=== PATIENT | female | born 1985 | race Caucasian/White ===

== ENCOUNTER 2016-11-04 17:39 | Emergency (ER) | payer OTHER ==
[~2016-11-04] VITALS: Ht 165.1 cm; Wt 73.3 kg
[2016-11-04 19:24] LABS: CHLORIDE 108 mEq/L (99-109); POTASSIUM 3.5 mEq/L (3.7-5.4); SODIUM 143 mEq/L (136-147)
[2016-11-04 19:26] LABS: GLUCOSE 97 mg/dL (70-99)
[2016-11-04 19:27] LABS: ANION GAP 8 MEQ/L (2-14)
[2016-11-04 19:30] LABS: GFR ESTIMATE (CALCULATED) > 59 mL/min/
[2016-11-04 19:31] LABS: UREA NITROGEN (BUN) 6 mg/dL (9-23)
[2016-11-04 19:33] LABS: SALICYLATE < 5.0 MG/DL (15-30)
[2016-11-04 19:39] LABS: QUANTITATIVE HCG < 4.0 MIU/ML
[2016-11-04 21:46] VITALS: BP 113/82
== END 2016-11-04 21:46 | disposition home or self-care (01) ==
LOC: EME 17:39
PROVIDERS: Emergency Medicine
DX: F32.9 Major depressive disorder, single episode, unspecified (principal); F17.200 Nicotine dependence, unspecified, uncomplicated; Z90.49 Acquired absence of other specified parts of digestive tract
CPT/HCPCS: 80048; 81003; 84702; 90839; 99281; 99285; G0480

== ENCOUNTER 2017-08-27 13:29 | Emergency (ER) | payer OTHER ==
[~2017-08-27] VITALS: Ht 165.1 cm; Wt 82.5 kg
[2017-08-27] MEDS ORDERED: FIORICET 50-301 EAC1 PO (15:46)
[2017-08-27] MEDS ORDERED: FLONASE16 G1 BOTH NARES (15:46)
[2017-08-27 17:11] VITALS: BP 98/60
== END 2017-08-27 17:20 | disposition home or self-care (01) ==
LOC: EME 13:29
DX: J32.9 Chronic sinusitis, unspecified (principal); M79.7 Fibromyalgia; F60.3 Borderline personality disorder; F17.200 Nicotine dependence, unspecified, uncomplicated
CPT/HCPCS: 99281; 99285; J1200; J1885; J2765; J7030